=== PATIENT | female | born 1960 | race Caucasian/White ===

== ENCOUNTER 2022-08-29 08:00 | Outpatient (RCR) | payer OTHER, SELFPAY ==
--- NOTE | 2022-06-13 11:43 | PTOPEVAL1 ---
Assessment and note entered by Elayne Macias, PT,CLT Evaluation Information Assessment Status Evaluation Diagnosis B LE lymphedema Onset 3 years Subjective Information chronic swelling in legs; Reported Pain Level Pain Score 6: Self Report Additional Pain Score Comments L leg heavier than R, problems lifting and moving L leg; Assessment PT Clinical Summary Tomasa has the diagnosis of lymphedema B LE's. She has recent cellulitis and is on antibiotics at this time. She has had treatment in the past ~ 3 yr ago, but not using any compression garments or home pump, which is not working at this time. With the evaluation, she has lipedema- lymphedema combination, with lobules, papillomas and fibrotic tissue over lower legs, knees and distal medial thighs; with mid to upper thighs with normal skin color and lipedema. The circumferential measurements of her legs, up to 64 cm are: R 1086 cm and L 1238 cm. She has weakness of her legs--is not able to lift them on/off the mat and reports heaviness of her legs, with decreased walking and activity tolerance. Skilled PT services are indicated for complete decongestive therapy--multilayer compression wraps , manual lymph drainage, intermittent compression pump, education for self care, self manual lymph drainage and appropriate compression garment for her to obtain for [facility] management of her chronic condition. She is also interested in obtaining a new home pump. Plan of Care Interventions Intermittent Compression,Lymphedema Compression Pump ,Manual Lymph Drainage,Patient/Caregiver Education, Therapeutic Exercise PT Services Indicated Yes Treatment Frequency and 0-3x/wk for 8 weeks, due to availability of Duration therapist, not able to start for a few weeks These treatments will address the objective and functional deficits as defined above. The patient will be advanced safely and appropriately in order for the patient to progress towards his/her prior level of function. Additional exercises will be introduced and as well as a comprehensive home exercise program upon discharge, if needed, ?to ensure carryover of functional gains achieved in the clinic. This treatment plan has been reviewed and agreement upon by the patient.
--- NOTE | 2022-08-08 11:01 | PTOPPROG ---
Assessment and note entered by Elayne Macias, PT Evaluation Information Assessment Status Progress Diagnosis B LE lymphedema Onset 3 years Subjective Information Benjamin reports: leg is so much better, pleased with the smaller size of it; leg is feeling better and is able to move it easier; Assessment PT Clinical Summary Benjamin has received 14 PT sessions. She has been educated on skin care, lymphedema care, compression garments, LE exercises. At this time, she is not interested in compression over her thigh or knee. She is going to have a demo for a home compression pump next week. Compared to the initial evaluation, her L leg has improved: circumferential measurement has decreased by 291.4 cm; does not have any fibrotic tissue over lower leg, but there is a tissue ridge at the most distal aspect, above her ankle, that is soft; continues to have dorsum of foot edema; no papillomas over lower leg; there is brownish discoloration of skin over lower 1/2 of lower leg; strength of L LE has increased--able to perform 15 SLR and lift L leg onto/off mat. She just received the compression garment and today it was applied for the first time and education to her on it--Circaid juxtafit lower leg and PAC foot piece. Continue PT lymphedema treatment--to begin compression wraps and continue treatment for her R LE. Plan of Care Interventions Intermittent Compression,Lymphedema Compression Pump ,Manual Lymph Drainage,Patient/Caregiver Education, Therapeutic Exercise PT Services Indicated Yes Treatment Frequency and 3x/wk for 6 weeks Duration These treatments will address the objective and functional deficits as defined above. The patient will be advanced safely and appropriately in order for the patient to progress towards his/her prior level of function. Additional exercises will be introduced and as well as a comprehensive home exercise program upon discharge, if needed, ?to ensure carryover of functional gains achieved in the clinic. This treatment plan has been reviewed and agreement upon by the patient.
--- NOTE | 2022-08-18 11:57 | PCPTNOTE ---
Patient called & cancelled scheduled appointment this date due to being sick.
--- NOTE | 2022-08-29 12:44 | PCPTNOTE ---
This treatment is being continued on visit number [id number]. Please see documentation on both accounts to view progress. Completed interventions, outcomes, and problems have been marked as Inactive to facilitate the copying of the Care plan routine for recurring accounts.
== END 2022-08-29 11:35 | disposition home or self-care (01) ==
LOC: ANHPT 08:00
PROVIDERS: PCP Family Medicine; Visit Provider Family Medicine
DX: I89.0 Lymphedema, not elsewhere classified (principal)
CPT/HCPCS: 29581; 97016; 97140; 97161

== ENCOUNTER 2022-09-19 10:30 | Outpatient (RCR) | payer OTHER, SELFPAY ==
--- NOTE | 2022-09-19 11:44 | PTOPDC ---
Assessment and note entered by Elayne Macias, PT, CLT Evaluation Information Assessment Status Discharge Diagnosis B LE lymphedema Onset 3 years Subjective Information Tomasa reports: legs feel much better, is able to get them in/out car, so has returned to driving; is walking more and easier with walking; is doing her self massage and leg exercises; is watching her diet and working on losing more weight; is wearing the velcro garments all day and at night too, removing for bathing only; does not want to get any thigh compression now, wants to wait and see how she does with the home pump and may get them later on; agree to d/c PT. Reported Pain Level Pain Score 0: Self Report Assessment PT Clinical Summary Tomasa has received 30 PT sessions for R and L LE lymphedema. Compared to the last reevaluation: strength of R and L LE's have improved with increased transfer and mobility skills; skin integrity has improved with less redness, no longer has any fibrotic tissue over lower legs; has velcro compression garments--Circaid Juxtafit essentials lower leg; size XXL, with L toe caps and PAC bands for ankle/ feet; Circumferential measurements of legs, up to 64 cm, decreased since initial evaluation: R by 131.4 cm and L by 288.9 cm. Education has been completed for self management of Lymphedema--skin care, leg exercises, self manual lymph drainage, use of compression garments Discussed thigh compression with her and she is not interested in it at this time, but may later. Educated on carlos, leggings. [facility] is in the process of obtaining insurance authorization for her home intermittent compression pump. Due to her increased abdominal and hip size, she would benefit from the Trunk and hip components of the Flexitouch home pump with both legs and trunk components. The goals were achieved for PT. Discharge PT. Plan of Care PT Services Indicated No
== END 2022-11-17 08:42 | disposition home or self-care (01) ==
LOC: ANHPT 10:30
PROVIDERS: PCP Family Medicine; Visit Provider Family Medicine
DX: I89.0 Lymphedema, not elsewhere classified (principal)
CPT/HCPCS: 29581; 97016; 97110; 97140